=== PATIENT | male | born 1980 | race Caucasian/White ===

== ENCOUNTER 2017-11-05 17:43 | Emergency (ER) | payer BC, OTHER ==
[2017-11-05 17:46] VITALS: BMI 25.0
[2017-11-05] MEDS ORDERED: CATAPRES TAB 0.1 MG ONE (17:47)
[2017-11-05] MEDS ORDERED: CATAPRES TAB 0.1 MG PO ONE (17:48)
[2017-11-05] MEDS ORDERED: ATIVAN INJ 2 MG VIAL IVP ONE (18:05)
[2017-11-05] MEDS ORDERED: NS 1000 ML 1,000 ML IV ONE ×2 (18:06→20:06)
[2017-11-05] MEDS ORDERED: NS 1000 ML 1,000 ML ONE ×2 (18:08→20:09)
--- NOTE | 2017-11-05 18:08 | DR.GENAD ---
HPI - PCP Primary Care Physician: none - Complaint/Symptoms Chief Complaint Doctors Comments: Patient was outside planting garden products, mother states that he did eight hours of work in three hours. He began to shake. He states that he has taken medication for nerves; but is out of them xanax. Since he has no insurance he does not take any medication Chief Complaint:: "was outside cleaning and got really hot now i feel like im having a stroke" - Source History Provided: Patient - Mode of Arrival Mode of Arrival: Ambulatory - Timing Onset of Chief Complaint: 11/05/17 PMH - PMH Past Medical History: Yes Past Medical History: Anxiety Past Surgical History: Yes Surgical History: Ortho Surgery - Family History History of Family Medical Conditions: Yes Family Medical History: Diabetes Mellitus - Social History Does patient currently use any type of tobacco product: No Have you used tobacco products in the last 12 months: No Type of Tobacco Use: None Does any household member use tobacco: No Alcohol Use: None Do you use any recreational Drugs:: No Lives With: Family Lives Where: Home - infectious screening In the last 2 months have you had wt loss of >10#?: NO Have you had fever, night sweats or hemotysis?: No Have you traveled outside the country in the last 6 months?: No Isolation: Standard ROS - Review of Systems Eyes: No Symptoms Reported ENTM: No Symptoms Reported Respiratoy: No Symptoms Reported Cardiovascular: No Symptoms Reported Gastrointestinal/Abdominal: No Symptoms Reported Genitourinary: No Symptoms Reported Neurological: No Symptoms Reported Musculoskeletal: No Symptoms Reported Integumentary: No Symptoms Reported Hematologic/Lymphatic: No Symptoms Reported Endocrine: No Symptoms Reported Psychiatric: No Symptoms Reported All Other Systems: Reviewed and Negative PE - Vital Signs Vitals: Temperature 97.7 F Pulse Rate [Right Brachial] 120 Pulse Rate 106 Respiratory Rate 18 Blood Pressure [Right Arm] 165/89 Blood Pressure 191/94 O2 Sat by Pulse Oximetry 98 - General Limitations: No Limitations General Appearance: Alert, In Distress - Head Head Exam: Normal Inspection, Atraumatic - Eyes Eye exam: Normal Appearance, PERRL, EOMI - ENT ENT Exam: Normal Exam External Ear Exam: Normal External Inspection TM/Canal Exam: Bilateral Normal Nose Exam: Normal Nose Exam Mouth Exam: Normal Inspection Throat Exam: Normal Inspection - Neck Neck Exam: Normal Inspection, Full ROM - Chest Chest Inspection: Normal Inspection - Respiratory Respiratory Exam: Normal Lung Sounds Bilat Respiratory Exam: Bilateral Clear to Auscultation - Cardiovascular Cardiovascular Exam: Regular Rate, Normal Rhythm - Abdominal Exam Abdominal Exam: Normal Inspection, Normal Bowel Sounds Abdominal Tenderness: negative: RUQ, RLQ, LUQ, LLQ, Epigastrium, Suprapubic, Diffuse, Mild, Moderate, Severe, Other - Extremities Extremities Exam: Normal Inspection, Other (tremor of right lower extremity - ongoing for one year or more) - Back Back Exam: Normal Inspection - Neurologic Neurological Exam: Alert, Oriented X3, CN II-XII Intact - Psychiatric Psychiatric Exam: Anxious. negative: Suicidal Ideation - Skin Skin Exam: Warm, Dry, Intact Course - Reevaluation 1st: Improved ROR - Labs Reviewed Laboratory Results Reviewed?: Yes (low potassium) Result Diagrams: 11/05/17 18:14 11/05/17 18:14 Laboratory: WBC 7.1 X10^3/uL (3.6-10.0) 18 18:14 RBC 4.82 X10^6/uL (4.7-6.0) 11/05/17 18:14 Hgb 14.0 g/dL (13.5-18.0) 18 18:14 Hct 40.2 % (42.0-54.0) L 11/05/17 18:14 MCV 83.3 fL (80.0-100.0) 18 18:14 MCH 29.0 pg (27.0-34.0) 18 18:14 MCHC 34.8 g/dL (33.0-35.0) 11/05/17 18:14 RDW 13.4 % (11.6-16.5) 18 18:14 Plt Count 232 X10^3/uL (150.0-450.0) 18 18:14 MPV 8.1 fL (7.4-11.0) 18 18:14 Neut % (Auto) 51.5 % (42.0-75.0) 18 18:14 Lymph % (Auto) 33.3 % (21.0-51.0) 11/05/17 18:14 [place] % (Auto) 9.2 % (0.0-13.0) 11/05/17 18:14 Eos % (Auto) 4.9 % (0.9-2.9) H 11/05/17 18:14 Baso % (Auto) 1.1 % (0.2-1.0) H 11/05/17 18:14 Neut # (Auto) 3.7 x10^3/uL (2.2-4.8) 18 18:14 Lymph # (Auto) 2.4 X10^3/uL (1.3-2.9) 11/05/17 18:14 [place] # (Auto) 0.7 x10^3/uL (0.3-0.8) 11/05/17 18:14 Eos # (Auto) 0.4 x10^3/uL (0.0-0.2) H 11/05/17 18:14 Baso # (Auto) 0.1 X10^3/uL (0.0-0.1) 11/05/17 18:14 Absolute Nucleated RBC 0.0 /100WBC 11/05/17 18:14 Sodium 141 mmol/L (136-145) 11/05/17 18:14 Corrected Sodium TNP 11/05/17 18:14 Potassium 3.3 mmol/L (3.5-5.1) L 11/05/17 18:14 Chloride 102 mmol/L (98-107) 11/05/17 18:14 Carbon Dioxide 28.5 mmol/L (21-32) 11/05/17 18:14 BUN 17 mg/dL (7-18) 11/05/17 18:14 Creatinine 1.14 mg/dL (0.70-1.30) 11/05/17 18:14 Est GFR (MDRD) Af Amer > 60 (>60) 11/05/17 18:14 Est GFR (MDRD) Non-Af > 60 (>60) 11/05/17 18:14 Glucose 109 mg/dL (65-99) H 11/05/17 18:14 Calcium 8.6 mg/dL (8.5-10.1) 11/05/17 18:14 Corrected Calcium TNP 11/05/17 18:14 Total Bilirubin 0.30 mg/dL (0.2-1.0) 11/05/17 18:14 AST 16 Units/L (15-37) 18 18:14 ALT 20 Units/L (12-78) 18 18:14 Alkaline Phosphatase 88 Units/L (46-116) 18 18:14 Total Protein 7.7 g/dL (6.4-8.2) 11/05/18 18:14 Albumin 4.6 g/dL (3.4-5.0) 18 18:14 Globulin 3.1 g/dL (2.5-4.5) 18 18:14 Albumin/Globulin Ratio 1.5 Ratio (1.1-2.1) 18 18:14 Specimen Type Catherized urine 11/05/17 20:20 Urine Color Yellow (YELLOW) 11/05/17 20:20 Urine Appearance Clear (CLEAR) 11/05/17 20:20 Urine pH 6.5 (5.0 - 8.0) 11/05/17 20:20 Ur Specific [place] 1.010 (1.000-1.030) 11/05/17 20:20 Urine Protein Negative (NEGATIVE) 11/05/17 20:20 Urine Glucose (UA) Negative (NEGATIVE) 11/05/17 20:20 Urine Ketones Negative (NEGATIVE) 11/05/17 20:20 Urine Occult Blood Negative (NEGATIVE) 11/05/17 20:20 Urine Nitrite Negative (NEGATIVE) 11/05/17 20:20 Urine Bilirubin Negative (NEGATIVE) 11/05/17 20:20 Urine Urobilinogen 1+ (NORMAL) 11/05/17 20:20 Ur Leukocyte Esterase 1+ (NEGATIVE) 11/05/17 20:20 Urine RBC Rare /HPF (NONE SEEN) 11/05/17 20:20 Urine WBC 0 - 4 /HPF (NONE SEEN) 11/05/17 20:20 Ur Squamous Epith Cells Rare /HPF (NEGATIVE) 11/05/17 20:20 Amorphous Sediment Trace /HPF (NEGATIVE) 11/05/17 20:20 Urine Bacteria Negative /HPF (NEGATIVE) 11/05/17 20:20 Urine Mucus Moderate /HPF (NEGATIVE) 11/05/17 20:20 Ur Culture Indicated? No/not indicated 11/05/17 20:20 - Diagnosis Discharge Problem: Anxiety, Limb tremor - Discharge Plan Condition: Stable - Follow ups/Referrals Follow ups/Referrals: NFD,None [Primary Care Provider] - 3 days - Instructions
[2017-11-05] MEDS ORDERED: ATIVAN INJ 2 MG VIAL ONE (18:09)
[2017-11-05 18:23] VITALS: BP 165/89
[2017-11-05 18:23] LABS: BASOPHILS # (AUTO) 0.1 X10^3/uL (0.0-0.1); BASOPHILS % (AUTO) 1.1 % (0.2-1.0); EOSINOPHILS # (AUTO) 0.4 x10^3/uL (0.0-0.2); EOSINOPHILS % (AUTO) 4.9 % (0.9-2.9); HEMATOCRIT 40.2 % (42.0-54.0); LYMPHOCYTES # (AUTO) 2.4 X10^3/uL (1.3-2.9); LYMPHOCYTES % (AUTO) 33.3 % (21.0-51.0); MEAN CORPUSCULAR HGB CONC 34.8 g/dL (33.0-35.0); MEAN CORPUSCULAR VOLUME 83.3 fL (80.0-100.0); MEAN PLATELET VOLUME 8.1 fL (7.4-11.0); MONOCYTES # (AUTO) 0.7 x10^3/uL (0.3-0.8); MONOCYTES % (AUTO) 9.2 % (0.0-13.0); NEUTROPHILS # (AUTO) 3.7 x10^3/uL (2.2-4.8); NEUTROPHILS % (AUTO) 51.5 % (42.0-75.0); PLATELET COUNT 232 X10^3/uL (150.0-450.0); RED BLOOD COUNT 4.82 X10^6/uL (4.7-6.0); RED CELL DISTRIBUTION WIDTH 13.4 % (11.6-16.5); WHITE BLOOD COUNT 7.1 X10^3/uL (3.6-10.0)
[2017-11-05 18:36] LABS: ALANINE AMINOTRANSFERASE 20 Units/L (12-78); ALBUMIN 4.6 g/dL (3.4-5.0); ALKALINE PHOSPHATASE 88 Units/L (46-116); ASPARTATE AMINO TRANSFERASE 16 Units/L (15-37); BLOOD UREA NITROGEN 17 mg/dL (7-18); CALCIUM 8.6 mg/dL (8.5-10.1); CARBON DIOXIDE 28.5 mmol/L (21-32); CHLORIDE 102 mmol/L (98-107); CREATININE 1.14 mg/dL (0.70-1.30); SODIUM 141 mmol/L (136-145); TOTAL PROTEIN 7.7 g/dL (6.4-8.2); eGFR BLACK RACES > 60 (>60); eGFR NON BLACK RACES > 60 (>60)
[2017-11-05] MEDS ORDERED: K-LYTE EFFERVESCENT PO ONE (20:07)
[2017-11-05] MEDS ORDERED: K-LYTE EFFERVESCENT ONE (20:09)
[2017-11-05 20:33] LABS: BILIRUBIN,URINE NEGATIVE (NEGATIVE); BLOOD/HEMOGLOBIN,URINE NEGATIVE (NEGATIVE); GLUCOSE, URINE NEGATIVE (NEGATIVE); KETONES,URINE NEGATIVE (NEGATIVE); LEUKOCYTE ESTERASE ,URINE 1+ (NEGATIVE); NITRITES,URINE NEGATIVE (NEGATIVE); PH,URINE 6.5 (5.0 - 8.0); PROTEIN,URINE NEGATIVE (NEGATIVE); UROBILINOGEN,URINE 1+ (NORMAL)
[2017-11-05 20:51] LABS: APPEARANCE,URINE CLEAR (CLEAR); COLOR,URINE YELLOW (YELLOW)
[2017-11-05 20:54] LABS: RBC,URINE RARE /HPF (NONE SEEN)
[2017-11-05 20:55] LABS: AMORPHOUS SEDIMENT,UR TRACE /HPF (NEGATIVE); BACTERIA,URINE NEGATIVE /HPF (NEGATIVE); MUCUS,URINE MODERATE /HPF (NEGATIVE); SQUAMOUS EPITHELIAL CELL,UR RARE /HPF (NEGATIVE)
== END 2017-11-05 22:20 | disposition home or self-care (01) ==
LOC: ER 17:53
DX: F41.8 Other specified anxiety disorders (principal); R25.1 Tremor, unspecified
CPT/HCPCS: 36415; 51702; 80053; 81001; 85025; 96365; 96367; 96374; 99283; A4222; J2060